=== PATIENT | male | born 1945 | race Caucasian/White ===

== ENCOUNTER 2020-03-02 14:36 | Emergency (ER) | payer OTHER | END 2020-03-02 18:00 | disposition home or self-care (01) | LOC: FER 14:36 | DX: M54.5 Low back pain (principal); R26.2 Difficulty in walking, not elsewhere classified; W07.XXXA Fall from chair, initial encounter | CPT/HCPCS: 72131 ==

== ENCOUNTER 2021-06-30 12:47 | Emergency (ER) | payer OTHER ==
[2021-06-30 13:43] LABS: BASOPHIL 0.2 % (0-2); EOSINOPHIL 0 % (0-7); HCT 41.2 % (42.0-52.0); HGB 13.7 g/dl (13.2-18.0); LYMPHOCYTE 9.2 % (15-48); MCH 30.4 pg (25.0-31.0); MCHC 33.3 g/dL (32.0-36.0); MCV 91.6 fL (78.0-100.0); MONOCYTE 8.9 % (0-12); MPV 9.6 fL (6.0-9.5); NEUTROPHIL 81.2 % (41-80); NRBC 0; PLT 96 K/uL (150-400); RDW 14.5 % (11.5-14.0); WBC 4.3 K/uL (4.0-10.5)
[2021-06-30 13:55] LABS: INR 1.17 (0.9-1.2); PROTHROMBIN TIME 14.3 SECONDS (11.8-13.4); PTT 30.4 SECONDS (24.4-34.7)
[2021-06-30 13:56] LABS: D-DIMER 0.47 ug/mLFEU (0.00-0.41)
[2021-06-30 14:07] LABS: LACTIC ACID 1.2 mmol/L (0.4-1.9)
[2021-06-30 14:19] LABS: ALBUMIN 3.8 g/dL (3.4-5.0); ALKALINE PHOSHATASE 117 U/L (46-116); ALT 44 U/L (16-63); AMYLASE 73 U/L (25-115); AST 50 U/L (15-37); BILIRUBIN - TOTAL 2.5 mg/dL (0.2-1.0); BUN 11 mg/dL (7-18); BUN/CREAT RATIO (CALC) 13.8 RATIO; CHLORIDE 99 mmol/L (98-107); CO2 (BICARBONATE) 26 mmol/L (21-32); GLOBULIN (CALCULATION) 3.9 g/dL; GLUCOSE 108 mg/dL (74-106); LIPASE 179 U/L (73-393); POTASSIUM 3.7 mmol/L (3.5-5.1); TOTAL PROTEIN 7.7 g/dL (6.4-8.2)
[2021-06-30 14:23] LABS: CORONAVIRUS 2019 SARS-COV-2 POSITIVE (NEGATIVE); INFLUENZA A NAA NEGATIVE (NEGATIVE)
[2021-06-30 17:24] LABS: BILIRUBIN NEGATIVE (NEGATIVE); BLOOD NEGATIVE Ery/uL (NEGATIVE); CLARITY CLEAR (CLEAR); COLOR YELLOW (YELLOW); GLUCOSE (U) NORMAL (NORMAL); LEUKOCYTES NEGATIVE Leu/uL (NEGATIVE); NITRITE NEGATIVE (NEGATIVE); PROTEIN NEGATIVE (NEGATIVE)
[2021-06-30 23:10] LABS: BASOPHIL 0.3 % (0-2); EOSINOPHIL 0 % (0-7); HCT 36.3 % (42.0-52.0); HGB 11.8 g/dl (13.2-18.0); MCH 30.1 pg (25.0-31.0); MCHC 32.5 g/dL (32.0-36.0); MCV 92.6 fL (78.0-100.0); MONOCYTE 10.6 % (0-12); MPV 9.4 fL (6.0-9.5); NEUTROPHIL 63.5 % (41-80); NRBC 1.5; RBC 3.92 M/uL (4.70-6.00); RDW 14.7 % (11.5-14.0); WBC 3.4 K/uL (4.0-10.5)
[2021-06-30 23:11] LABS: PLT 80 K/uL (150-400)
[2021-07-01 05:04] LABS: HCT 34.5 % (42.0-52.0); HGB 11.6 g/dL (13.2-18.0)
[2021-07-01] MEDS ORDERED: ZPAK PO (06:21)
[2021-07-01] MEDS ORDERED: ONDANSETRON ODT4 MG PO (06:21)
== END 2021-07-01 08:00 | disposition home or self-care (01) ==
LOC: FER 12:47
PROVIDERS: Emergency Medicine; Nurse Practitioner Family
DX: U07.1 COVID-19 (principal); K92.0 Hematemesis; R10.84 Generalized abdominal pain
CPT/HCPCS: 36415; 71045; 71275; 80053; 81003; 82150; 82271; 83605; 83690; 84145; 85014; 85018; 85025; 85379; 85610; 85730; 87040; 87880; C9113; G0480; J2405; J7030; Q9967; U0002